=== PATIENT | male | born 1940 | race Caucasian/White ===

== ENCOUNTER 2017-01-16 16:49 | Observation (INO) ==
[2017-01-16] MEDS ORDERED: KETOROLAC 30 MG/1 ML VIAL IV STA (17:25)
[2017-01-16] MEDS ORDERED: ONDANSETRON 4 MG/2 ML VIAL IV STA (17:25)
[2017-01-16] MEDS ORDERED: MORPHINE 2 MG/1 ML SYRINGE IV STA (17:25)
[2017-01-16] MEDS ORDERED: ASPIRIN 325 MG TABLET PO STA (17:25)
[2017-01-16] MEDS ORDERED: ALUM/MAG/SIMETH/LIDO VISC 1:1 30 ML BOTTLE PO STA (17:25)
[2017-01-16] MEDS ORDERED: ONDANSETRON 4 MG/2 ML VIAL ONE (17:46)
[2017-01-16] MEDS ORDERED: MORPHINE 2 MG/1 ML SYRINGE ONE (17:47)
[2017-01-16] MEDS ORDERED: ALUM/MAG/SIMETH/LIDO VISC 1:1 30 ML BOTTLE PO ONE (17:47)
[2017-01-16] MEDS ORDERED: ASPIRIN 325 MG TABLET ONE (17:47)
[2017-01-16] MEDS ORDERED: KETOROLAC 30 MG/1 ML VIAL ONE (17:47)
[2017-01-16 17:56] LABS: Basophils % 0.5 % (0.0-0.8); Eosinophils # 0.1 10*3/uL (0.0-0.87); Eosinophils % 2.1 % (0.00-10.9); Hematocrit 34.8 VOL% (42.0-52.0); Hemoglobin 11.8 GM/DL (14.0-18.0); Immature Granulocytes % 0.5 %; Immature Granulocytes Absolute 0.03 #; Lymphocytes # 1.1 10*3/uL (1.4-4.0); Lymphocytes % 18.2 % (21.2-54.2); Mean Corpuscular HGB Conc 33.9 GM/DL (32-36); Mean Corpuscular Hemoglobin 30 PG (27-34); Mean Corpuscular Volume 88.1 FL (87-102); Mean Platelet Volume 10.2 FL (9.6-12.0); Monocytes # 0.6 10*3/uL (0.11-0.8); Monocytes % 9.4 % (1.7-12.7); Neutrophils # 4.3 10*3/uL (1.4-7.4); Neutrophils % 69.3 % (38.7-73.9); Platelet Count 246 T/CUMM (130-400); Red Blood Count 3.95 MC/CUMM (3.8-5.5); Red Cell Distribution Width 13.4 % (9.3-17.3); White Blood Count 6.1 T/CUMM (4-12)
[2017-01-16 18:11] LABS: PT Patient Result 10.9 SECS
[2017-01-16 18:16] LABS: Albumin 3.6 G/DL (3.4-5.0); Bilirubin,Total 0.4 MG/DL (0.2-1.0); Calcium 8.5 MG/DL (8.5-10.1); Magnesium 2.2 MG/DL (1.8-2.4); Osmolality,Calculated 284.4 MOS/KG (273-304); Potassium 3.4 MMOL/L (3.5-5.1); Total Protein 6.6 G/DL (6.4-8.3)
[2017-01-16] MEDS ORDERED: NITROGLYCERIN SL 0.4 MG TABLET SL PRN (19:43)
[2017-01-16] MEDS ORDERED: ONDANSETRON 4 MG/2 ML VIAL IV PRN (19:43)
[2017-01-16] MEDS ORDERED: MORPHINE 2 MG/1 ML SYRINGE IV PRN (19:43)
[2017-01-16] MEDS ORDERED: POTASSIUM CHLORIDE 20 MEQ TABLET PO PRN (19:43)
[2017-01-16] MEDS ORDERED: ACETAMINOPHEN 325 MG TABLET PO PRN (19:43)
[2017-01-16] MEDS ORDERED: ALBUTEROL 2.5 MG/3 ML NEB RESP TX PRN (19:46)
[2017-01-16] MEDS ORDERED: DEXTROSE 50% 25 GM/50 ML VIAL IV PRN (19:48)
[2017-01-16] MEDS ORDERED: GLUCAGON 1 MG VIAL IM PRN (19:48)
[2017-01-16] MEDS ORDERED: ENOXAPARIN 40 MG/0.4 ML SYRINGE SUBCUT SCH (21:00)
[2017-01-16] MEDS: MIDODRINE 5 MG TABLET PO SCH (21:47)
[2017-01-16] MEDS: CITALOPRAM 20 MG TABLET PO SCH (21:47)
[2017-01-16] MEDS: ROSUVASTATIN 20 MG TABLET PO SCH (21:47)
[2017-01-16] MEDS: METOPROLOL TARTRATE 25 MG TABLET PO SCH (21:48)
[2017-01-16] MEDS: INSULIN LISPRO 100 UNIT/ML SUBCUT SCH (21:48)
[2017-01-16] MEDS: POTASSIUM CHLORIDE 20 MEQ TABLET PO PRN (23:45)
[2017-01-17] MEDS: POTASSIUM CHLORIDE 20 MEQ TABLET PO PRN (00:58)
[2017-01-17] MEDS: NITROGLYCERIN 2% OINT 1 INCH/GM PACK TOP SCH ×2 (00:58→05:22)
[2017-01-17 05:24] LABS: Basophils % 0.8 % (0.0-0.8); Eosinophils # 0.3 10*3/uL (0.0-0.87); Eosinophils % 4.8 % (0.00-10.9); Hematocrit 33.5 VOL% (42.0-52.0); Hemoglobin 11.3 GM/DL (14.0-18.0); Immature Granulocytes % 0.4 %; Immature Granulocytes Absolute 0.02 #; Lymphocytes # 1.7 10*3/uL (1.4-4.0); Lymphocytes % 33.4 % (21.2-54.2); Mean Corpuscular HGB Conc 33.7 GM/DL (32-36); Mean Corpuscular Hemoglobin 30 PG (27-34); Mean Corpuscular Volume 89.3 FL (87-102); Mean Platelet Volume 10.3 FL (9.6-12.0); Monocytes # 0.5 10*3/uL (0.11-0.8); Monocytes % 10.2 % (1.7-12.7); Neutrophils # 2.6 10*3/uL (1.4-7.4); Neutrophils % 50.4 % (38.7-73.9); Platelet Count 236 T/CUMM (130-400); Red Blood Count 3.75 MC/CUMM (3.8-5.5); Red Cell Distribution Width 13.7 % (9.3-17.3); White Blood Count 5.2 T/CUMM (4-12)
[2017-01-17 05:49] LABS: Calcium 8.8 MG/DL (8.5-10.1); Osmolality,Calculated 287.1 MOS/KG (273-304); Potassium 4.7 MMOL/L (3.5-5.1); Risk Ratio 2.16; VLDL CHOLESTEROL 13.6 MG/DL
[2017-01-17] MEDS: ASPIRIN EC 325 MG TABLET PO SCH (09:48)
[2017-01-17] MEDS: SODIUM CHLORIDE 0.9% 1,000 ML IV SCH ×3 (11:00→21:38)
[2017-01-17] MEDS ORDERED: diphenhydrAMINE CAP 25 MG CAPSULE PO ONE (11:08)
[2017-01-17] MEDS ORDERED: DIAZEPAM 5 MG TABLET PO ONE (11:08)
[2017-01-17] MEDS ORDERED: MAGNESIUM SULF RIDER 2 GM in PREMIX 1 EACH IV PRN (11:08)
[2017-01-17] MEDS ORDERED: POTASSIUM CHLORIDE RIDER 10 MEQ in PREMIX 1 EACH IV PRN (11:08)
[2017-01-17] MEDS: METOPROLOL TARTRATE 25 MG TABLET PO SCH (13:09)
[2017-01-17] MEDS: LISINOPRIL 5 MG TABLET PO SCH (13:10)
[2017-01-17] MEDS: MIDODRINE 5 MG TABLET PO SCH ×5 (13:11→21:47)
[2017-01-17] MEDS: CLOPIDOGREL 75 MG TABLET PO SCH (13:11)
[2017-01-17] MEDS: PANTOPRAZOLE 40 MG TABLET PO SCH (13:11)
[2017-01-17] MEDS: INSULIN LISPRO 100 UNIT/ML SUBCUT SCH ×3 (13:12→21:36)
[2017-01-17] MEDS: metFORMIN 500 MG TABLET PO SCH (13:12)
[2017-01-17] MEDS ORDERED: MEPERIDINE 25 MG/1 ML VIAL ONE (13:32)
[2017-01-17] MEDS ORDERED: LIDOCAINE 1% 20 ML VIAL ONE (13:32)
[2017-01-17] MEDS ORDERED: MIDAZOLAM 2 MG/2 ML VIAL ONE (13:33)
[2017-01-17] MEDS ORDERED: HEPARIN 5,000 UNIT/1 ML VIAL ONE (13:51)
[2017-01-17] MEDS: CITALOPRAM 20 MG TABLET PO SCH ×2 (15:40→21:46)
[2017-01-17] MEDS: traMADol 50 MG TABLET PO SCH ×2 (15:42→21:47)
[2017-01-17] MEDS: GABAPENTIN 100 MG CAPSULE PO SCH ×2 (15:42→21:48)
[2017-01-17] MEDS: ACETAMINOPHEN 325 MG TABLET PO SCH ×2 (15:50→21:48)
[2017-01-17] MEDS: ROSUVASTATIN 20 MG TABLET PO SCH (21:46)
[2017-01-18] MEDS: SODIUM CHLORIDE 0.9% 1,000 ML IV SCH (02:32)
[2017-01-18 03:41] LABS: Basophils % 0.7 % (0.0-0.8); Eosinophils # 0.3 10*3/uL (0.0-0.87); Eosinophils % 5.6 % (0.00-10.9); Hematocrit 34.5 VOL% (42.0-52.0); Hemoglobin 11.5 GM/DL (14.0-18.0); Immature Granulocytes % 0.2 %; Immature Granulocytes Absolute 0.01 #; Lymphocytes # 1.8 10*3/uL (1.4-4.0); Lymphocytes % 31.2 % (21.2-54.2); Mean Corpuscular HGB Conc 33.3 GM/DL (32-36); Mean Corpuscular Hemoglobin 30 PG (27-34); Mean Corpuscular Volume 90.6 FL (87-102); Mean Platelet Volume 10.4 FL (9.6-12.0); Monocytes # 0.5 10*3/uL (0.11-0.8); Monocytes % 8.9 % (1.7-12.7); Neutrophils # 3.1 10*3/uL (1.4-7.4); Neutrophils % 53.4 % (38.7-73.9); Platelet Count 216 T/CUMM (130-400); Red Blood Count 3.81 MC/CUMM (3.8-5.5); Red Cell Distribution Width 13.8 % (9.3-17.3); White Blood Count 5.7 T/CUMM (4-12)
[2017-01-18 04:11] LABS: Calcium 8.7 MG/DL (8.5-10.1); Potassium 5.3 MMOL/L (3.5-5.1)
[2017-01-18] MEDS: metFORMIN 500 MG TABLET PO SCH (07:53)
[2017-01-18] MEDS ORDERED: SODIUM POLYSTYRENE SULFATE 15 GM/60 ML BOTTLE PO ONE (08:49)
[2017-01-18 09:06] VITALS: BP 117/73
[2017-01-18] MEDS: traMADol 50 MG TABLET PO SCH (10:35)
[2017-01-18] MEDS: ACETAMINOPHEN 325 MG TABLET PO SCH (10:36)
[2017-01-18] MEDS: PANTOPRAZOLE 40 MG TABLET PO SCH (10:36)
[2017-01-18] MEDS: MIDODRINE 5 MG TABLET PO SCH (10:36)
[2017-01-18] MEDS: GABAPENTIN 100 MG CAPSULE PO SCH (10:37)
[2017-01-18] MEDS: LISINOPRIL 5 MG TABLET PO SCH (10:38)
[2017-01-18] MEDS: CITALOPRAM 20 MG TABLET PO SCH (10:38)
[2017-01-18] MEDS: CLOPIDOGREL 75 MG TABLET PO SCH (10:39)
[2017-01-18] MEDS: INSULIN LISPRO 100 UNIT/ML SUBCUT SCH (10:39)
[2017-01-18] MEDS: ASPIRIN EC 325 MG TABLET PO SCH (10:40)
== END 2017-01-18 11:55 | disposition home or self-care (01) ==
LOC: N.ED 16:49 → N.EDINP 16:49 → N.TELES 20:05
PROVIDERS: ADMIT Internal Medicine Cardiovascular Disease; ATTEND Internal Medicine Cardiovascular Disease
PROC: CLCCHCL (ICD-10-PCS; 2017-01-17 12:15)